=== PATIENT | male | born 1965 | race Caucasian/White ===

== ENCOUNTER 2019-09-24 00:46 | Emergency (ER) | payer OTHER ==
[2019-09-24 00:55] VITALS: O2SAT 95
[2019-09-24 01:35] LABS: Appearance CLEAR (CLEAR); Bilirubin NEGATIVE (NEGATIVE); Blood NEGATIVE Ery/ul (0-5); Glucose NEGATIVE (NEGATIVE); Ketones NEGATIVE (NEGATIVE); Leukocyte Esterase NEGATIVE (NEGATIVE); Mucus SLIGHT /HPF (NEGATIVE); Nitrite NEGATIVE (NEGATIVE); Protein,Urine Dip NEGATIVE (Negative); Specific Gravity 1.021 (1.005-1.025); Urobilinogen 2 mg/dL (0-1)
--- NOTE | 2019-09-24 01:40 | ERPHSYRPT ---
- History of Present Illness Time Seen by Provider: 09/24/19 01:10 Source: patient Exam Limitations: no limitations Patient Subjective Stated Complaint: pt c/o lower back pain to left side radiating to left lower abd Triage Nursing Assessment: pt c/o left lower back pain, radiating to left lower abd. Pain has been there x2 weeks but got so bad tonight he couldn't stand it any longer. Abd lg, obese with active bs x4 quad. Physician History: 54 y/o morbidly white male presents with 2-week history of left back/flank pain. He denies any type of injury. He has no urinary symptoms. Patient states his pain just has been getting worse so he opted to come in this morning. No chest pain he has no abdominal pain he has no nausea vomiting or diarrhea. Timing/Duration: week(s) (2) Method of Injury: other (No injury) Quality: radiating, sharp Back Pain Location: lumbar spine, paraspinous muscles Severity of Pain-Max: mild Severity of Pain-Current: mild Modifying Factors: Improves With: movement Associated Symptoms: lower back pain Previous symptoms: no prior history Allergies/Adverse Reactions: No Known Drug Allergies Allergy (Unverified 09/24/19 01:09) Home Medications: Apixaban [Eliquis] 5 mg PO BID 09/24/19 [History] Atorvastatin Calcium 40 mg PO DAILY 09/24/19 [History] Bisoprolol/Hydrochlorothiazide [Bisoprolol-Hctz 5-6.25 mg Tab] 1 tab PO DAILY [History] Ergocalciferol (Vitamin D2) [Vitamin D] 50,000 unit PO WEEKLY 09/24/19 [History] Hx Tetanus, Diphtheria Vaccination/Date Given: Yes Hx Influenza Vaccination/Date Given: Yes Hx Pneumococcal Vaccination/Date Given: No Immunizations Up to Date: Yes Travel Risk - International Travel Have you traveled outside of the country in past 3 weeks: No Have you or anyone close to you been diagnosed with or: No Do your reside in a community with a known COVID-19 case?: Yes If Yes where:: [place] - Coronavirus Screening Has patient experienced Coronavirus symptoms: No - Review of Systems Constitutional: No Symptoms Eyes: No Symptoms Ears, Nose, & Throat: No Symptoms Respiratory: No Symptoms Cardiac: No Symptoms Abdominal/Gastrointestinal: No Symptoms Genitourinary Symptoms: No Symptoms Musculoskeletal: Back Pain (Left side lower back pain paraspinous muscle region. ) Skin: No Symptoms Neurological: No Symptoms Psychological: No Symptoms Endocrine: No Symptoms Hematologic/Lymphatic: No Symptoms Immunological/Allergic: No Symptoms All Other Systems: Reviewed and Negative - Past Medical History Pertinent Past Medical History: Yes Neurological History: No Pertinent History ENT History: No Pertinent History Cardiac History: Angina, High Cholesterol, Hypertension Respiratory History: No Pertinent History Endocrine Medical History: No Pertinent History Musculoskeletal History: Other GI Medical History: No Pertinent History History: No Pertinent History Psycho-Social History: No Pertinent History Male Reproductive Disorders: No Pertinent History Other Medical History: blood clot before fork to both legs - Past Surgical History Past Surgical History: Yes Neuro Surgical History: No Pertinent History Respiratory: No Pertinent History Gastrointestinal: No Pertinent History Genitourinary: No Pertinent History Musculoskeletal: Amputation, Other Male Surgical History: No Pertinent History Other Surgical History: rt knee scope, 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 - Social History Smoking Status: Current every day smoker How long have you smoked: 36 yrs Exposure to second hand smoke: Yes Drug Use: none Patient Lives Alone: No - Nursing Vital Signs Nursing Vital Signs: Initial Vital Signs Temperature 97.8 F 09/24/19 00:51 Pulse Rate 73 09/24/19 00:51 Respiratory Rate 18 09/24/19 00:51 Blood Pressure 118/71 09/24/19 00:51 O2 Sat by Pulse Oximetry 95 09/24/19 00:51 Pain Scale Pain Intensity [Left Abdomen] 10 Pain Intensity 10 - Physical Exam General Appearance: no apparent distress, alert, obese Eye Exam: PERRL/EOMI, eyes nml inspection Ears, Nose, Throat Exam: moist mucous membranes Neck Exam: normal inspection, non-tender, supple, full range of motion Respiratory Exam: airway intact, No chest tenderness, No respiratory distress Gastrointestinal Exam: No tenderness Rectal Exam: not done Back Exam: normal inspection, normal range of motion, CVA tenderness (Left), No vertebral tenderness Extremity Exam: normal inspection, normal range of motion, pelvis stable Neurologic Exam: alert, oriented x 3, cooperative, 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 Medical decision making: This patient does not appear to have a urinary tract infection or evidence of ureterolithiasis. We will initially treat him as a muscle skeletal pain patient/left lower paraspinous muscle pain patient. Counseled pt/family regarding: diagnosis, need for follow-up - Departure Departure Disposition: Home Clinical Impression: Back pain Condition: Stable Critical Care Time: No Additional Instructions: Take medication as prescribed. Follow-up with your primary care physician for further management. Prescriptions: Carisoprodol 350 mg [Soma 350 mg] 350 mg PO Q8H PRN PRN #10 tablet PRN Reason: Muscle Spasms Prednisone 10 mg [Deltasone 10 mg] 10 mg PO TID #12 tablet
[2019-09-24] MEDS ORDERED: Cyclobenzaprine 10 MG PO ONE (01:58)
[2019-09-24] MEDS ORDERED: DELTASONE 20 MG PO ONE (01:58)
[2019-09-24] MEDS ORDERED: Cyclobenzaprine 10 MG ONE (02:01)
[2019-09-24] MEDS ORDERED: DELTASONE 20 MG ONE (02:01)
[2019-09-24 02:07] VITALS: BP 98/71; PULSE 83
== END 2019-09-24 02:19 | disposition home or self-care (01) ==
LOC: ED 00:46
DX: M54.5 Low back pain (principal); I10 Essential (primary) hypertension
CPT/HCPCS: 81001; 99283; A9270-GY